=== PATIENT | female | born 1995 | race Caucasian/White ===

== ENCOUNTER 2019-03-17 00:54 | Emergency (ER) | payer OTHER ==
[2019-03-17 01:03] VITALS: BP 156/115
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
[2019-03-17] MEDS ORDERED: oxyCODONE/ACET 5/325 Prepack 4 PO STA (01:26)
[2019-03-17] MEDS ORDERED: SILVER SULFADIAZINE CREAM 25 GM TUBE TOP STA (01:26)
== END 2019-03-17 01:43 | disposition home or self-care (01) ==
LOC: ED 00:54
DX: T23.252A Burn of second degree of left palm, initial encounter (principal); T31.0 Burns involving less than 10% of body surface; X15.3XXA Contact with hot saucepan or skillet, initial encounter; Y93.G3 Activity, cooking and baking
CPT/HCPCS: 99282; 99283; A9270

== ENCOUNTER 2023-09-05 07:56 | Emergency (ER) | payer OTHER ==
--- NOTE | 2023-09-05 08:25 | ED Physician Documentation ---
PD HPI FEMALE - Stated complaint Stated Complaint: CRAMPING/BACK PX - Chief complaint Chief Complaint: Abd Pain - History obtained from History obtained from: Patient - Additional information Additional information: Recently stopped control. Started her menses last night which was at the normal time but the flow was heavier with heavier cramping. She called the advice line who advised she come here. Pain and symptoms were better after taking Advil at home. PD PAST MEDICAL HISTORY - Past Surgical History Past Surgical History: No - Present Medications Home Medications: Ambulatory Orders Medication Instructions Recorded Confirmed Oxycodone HCl/Acetaminophen 1 - 2 each PO Q6H PRN #20 tablet 03/17/19 [Percocet 5-325 mg Tablet] Silver Sulfadiazine [Silvadene] 1 film TP DAILY #1 cream..g. 03/17/19 - Allergies Allergies/Adverse Reactions: Allergies Allergy/AdvReac Type Severity Reaction Status Date / Time No Known Drug Allergies Allergy Verified 03/17/19 01:04 - Social History Does the pt smoke?: No Smoking Status: Never smoker Does the pt drink ETOH?: No Does the pt have substance abuse?: No - Immunizations Immunizations are current?: Yes - POLST Patient has POLST: No PD ED PE NORMAL - Vitals Vital signs reviewed: Yes - General General: Alert and oriented X 3, No acute distress - Abdomen Abdomen: Non tender - Back Back: No CVA TTP Results - Vitals Vitals: Vital Signs - 24 hr 09/05/23 08:05 Temperature 36.7 C Heart Rate 60 Respiratory 18 Rate Blood Pressure 129/73 O2 Saturation 98 Oxygen O2 Source Room air - Labs Labs: Laboratory Tests 09/05/23 08:20 Urine Color YELLOW Urine Clarity CLEAR Urine pH 7.0 Ur Specific [place] 1.010 Urine Protein NEGATIVE Urine Glucose (UA) NEGATIVE Urine Ketones NEGATIVE Urine Occult Blood MODERATE H Urine Nitrite NEGATIVE Urine Bilirubin NEGATIVE Urine Urobilinogen 0.2 (NORMAL) Ur Leukocyte Esterase NEGATIVE Ur Microscopic Review INDICATED Urine Culture Comments Not Reportable Urine HCG, Qual NEGATIVE PD Medical Decision Making - ED course ED course: 28-year-old woman presents for painful menstrual cramps, heavier than her usual but at the normal time. Recent cessation of control. Urinalysis showing below expected blood, negative test. No emergency medical condition present. Departure - Departure Disposition: 01 Home, Self Care Clinical Impression: Menstrual cramps Condition: Good Record reviewed to determine appropriate education?: Yes Instructions: ED Bleeding Menstrual Heavy Comments: You can take an anti-inflammatory such as Advil for the cramps and pain, return if menses were to continue much longer than normal or for other new or worsening symptoms. Forms: Activity restrictions
[2023-09-05 08:28] LABS: BILIRUBIN,URINE NEGATIVE (NEGATIVE); GLUCOSE, URINE (UA) NEGATIVE (NEGATIVE); KETONES,URINE (UA) NEGATIVE (NEGATIVE); LEUKOCYTE ESTERASE, URINE NEGATIVE (NEGATIVE); NITRITE,URINE NEGATIVE (NEGATIVE); OCCULT BLOOD,URINE MODERATE (NEGATIVE); PROTEIN,URINE NEGATIVE (NEGATIVE); UROBILINOGEN,URINE 0.2 (NORMAL) E.U./dL (NORMAL)
[2023-09-05 08:31] LABS: CLARITY,URINE CLEAR (CLEAR); HCG UR QUAL NEGATIVE
[2023-09-05 08:45] LABS: BACTERIA,URINE Rare /HPF (None Seen); RBC,URINE 0-5 /HPF (0-5); SQUAMOUS EPITHELIAL CELL,UR FEW Squamous (<= Few); WBC,URINE 0-3 /HPF (0-5)
[2023-09-05 08:53] VITALS: BP 126/74; O2SAT 99
== END 2023-09-05 08:44 | disposition home or self-care (01) ==
LOC: ED 07:56
DX: N94.6 Dysmenorrhea, unspecified (principal)
CPT/HCPCS: 81001; 81003; 81025; 87086; 99283